=== PATIENT | female | born 1990 | race Caucasian/White ===

== ENCOUNTER → 2016-07-29 | Outpatient (CLI) | payer OTHER ==
[~2016-07-29] MED LIST: PRENTAB26 PO; SULF800T23 PO; UNKNOWN ANTIBIOTIC
== END | disposition home or self-care (01) ==
LOC: C.LAB1850 08:15
PROVIDERS: ATTEND Obstetrics & Gynecology
DX: O28.1 Abnormal biochemical finding on antenatal screening of mother (principal)

== ENCOUNTER 2016-09-03 18:20 | Outpatient (CLI) | payer OTHER ==
[~2016-09-03] VITALS: Ht 157.5 cm; Wt 88.6 kg
[~2016-09-03 18:20] MED LIST changes: -PRENTAB26 PO
[2016-09-03 19:10] VITALS: Ht 157.5 cm; Wt 88.6 kg
[2016-09-03] MEDS ORDERED: PRENTAB26 PO (19:10)
== END 2016-09-03 19:20 | disposition home or self-care (01) ==
LOC: C.OPB 18:20 → C.LD 18:21 → C.OPB 19:20
PROVIDERS: ATTEND Obstetrics & Gynecology
DX: O26.893 Other specified pregnancy related conditions, third trimester (principal); Z3A.35 35 weeks gestation of pregnancy

== ENCOUNTER → 2016-09-12 | Outpatient (CLI) | payer OTHER ==
[~2016-09-12] MED LIST changes: +PRENTAB26 PO; -SULF800T23 PO; -UNKNOWN ANTIBIOTIC
== END | disposition home or self-care (01) ==
LOC: C.LABSPEC 13:19
PROVIDERS: ATTEND Obstetrics & Gynecology
DX: Z34.83 Encounter for supervision of other normal pregnancy, third trimester (principal)

== ENCOUNTER 2016-09-23 13:06 | Outpatient (CLI) | payer OTHER ==
[~2016-09-23] VITALS: Ht 157.5 cm; Wt 86.4 kg
[2016-09-23 13:24] VITALS: Ht 157.5 cm; Wt 86.4 kg
--- NOTE | 2016-09-23 14:19 | Discharge Instructions ---
Discharge Instructions Date of Service Sep 23, 2016. Admission Reason for Admission: Check Labor Discharge Discharge Diagnosis / Problem: Rule out labour Discharge Goals Goal(s): Continuing OB care Activity Recommendations Activity Limitations: resume your previous activity . Current Hospital Diet Patient's current hospital diet: Discharge Diet Recommended Diet: Regular OB Diet Pending Studies Studies pending at discharge: no Medical Emergencies . Who to Call and When: Medical Emergencies: If at any time you feel your situation is an emergency, please call 911 immediately. . Non-Emergent Contact Non-Emergency issues call your: Primary Care Provider, Laundry Routeman . . "Provider Documentation" section prepared by Gian Avalos. VTE Core Measure Inpt VTE Proph given/why not?: Treatment not indicated
== END 2016-09-23 14:35 | disposition home or self-care (01) ==
LOC: C.LD 13:06 → C.OPB 13:06
PROVIDERS: ATTEND Obstetrics & Gynecology
DX: O62.9 Abnormality of forces of labor, unspecified (principal); Z3A.36 36 weeks gestation of pregnancy

== ENCOUNTER 2016-09-29 14:40 | Outpatient (CLI) | payer OTHER ==
--- NOTE | 2016-10-01 06:50 | EDITING REQUIRED CODING QUERY ---
DIAGNOSIS NEEDED To promote full compliance with coding requirements relating to patient care, physician participation is requested in all cases of typecasting machine operator uncertainty. Please assist us with the question(s) below: Coding Question: The patient received care in labor and delivery on 09/29/16 as noted within the record. Please document the diagnosis that is being addressed by the medication/treatment. Provider Response: DIAGNOSIS: 38w5d gestation contractions Thank you for your assistance, Temitope Gutierrez - Computer Bookkeeper
== END 2016-09-29 15:55 | disposition home or self-care (01) ==
LOC: C.OPB 14:40 → C.LD 14:41 → C.OPB 15:55
PROVIDERS: ATTEND Obstetrics & Gynecology
DX: O62.9 Abnormality of forces of labor, unspecified (principal); Z3A.38 38 weeks gestation of pregnancy

== ENCOUNTER 2016-09-30 05:11 | Inpatient (IN) | payer OTHER ==
[~2016-09-30] VITALS: Ht 157.5 cm; Wt 88.0 kg
[~2016-09-30 05:11] MED LIST changes: +OXYTOCIN 30 UNITS/500ML NSS IV ONE
[2016-09-30] MEDS ORDERED: LACTATED RINGER'S 1000ML 1,000 ML IV SCH (05:35)
[2016-09-30] MEDS ORDERED: BENZOCAINE 20% AER SPR 82.5 GM CAN EXT PRN (05:45)
[2016-09-30] MEDS ORDERED: LANOLIN OINT EXT PRN ×2 (05:45)
[2016-09-30] MEDS ORDERED: HYDROCORTISONE ACETATE 25 MG SUPP PR PRN (05:45)
[2016-09-30] MEDS ORDERED: SUPERCREAM 0.870 % 15GM JAR EXT PRN (05:45)
[2016-09-30] MEDS ORDERED: ACETAMINOPHEN/CODEINE 300/30MG TAB PO PRN ×2 (05:45)
[2016-09-30] MEDS ORDERED: OXYTOCIN 30 UNITS/500ML NSS IV PRN (05:45)
[2016-09-30] MEDS: IBUPROFEN 600 MG TAB PO PRN ×2 (05:46→14:03)
[2016-09-30 06:22] VITALS: Ht 157.5 cm; Wt 88.0 kg
--- NOTE | 2016-09-30 06:25 | DELIVERY SUMMARY ---
DATE OF OPERATION: 09/30/2016 PRE-DELIVERY DIAGNOSES: 1. A 26-year-old G2, P1-0-0-1 at 39 weeks 0 days. 2. Spontaneous labor. POST-DELIVERY DIAGNOSES: Same. PROCEDURE: Spontaneous vaginal delivery. FINDINGS: A viable female , Apgars 8 and 9, weight pending. Please see nursery notes. ESTIMATED BLOOD LOSS: 300 mL. CONDITION: Stable and good. DESCRIPTION OF DELIVERY: The patient progressed to complete and without epidural anesthesia, spontaneously vaginally delivered a viable female from the right occiput anterior position. The head delivered, one nuchal cord was noted and easily reduced. The anterior followed by the posterior shoulder delivered, followed by the body. The baby was warmed and dried and placed on the mother's abdomen and a spontaneous cry was heard. The cord was doubly clamped and cut. A cord segment was retained. Cord gases pending. Cord blood was obtained. The placenta was delivered spontaneously, intact with a 3-vessel cord. The uterus and vagina were swept of all clots and debris. The perineum, cervix and vagina were inspected and a first-degree laceration was noted. This was hemostatic. The patient elected for no repair. Sponge and instrument were correct at the conclusion of the delivery. The patient tolerated the delivery well. Excellent hemostasis was observed. I attest to the content of the Intraoperative Record and any orders documented therein. Any exceptions are noted below. MTDD
[2016-09-30 06:39] LABS: HEMATOCRIT 35.1 % (37-47); MEAN CELL VOLUME 90.5 fL (80-100); MEAN CORPUSCULAR HEMOGLOBIN 29.9 pg (25-34); MEAN PLATELET VOLUME 12.5 fL (7.4-10.4); PLATELET COUNT 188 K/uL (130-400); RED BLOOD COUNT 3.88 M/uL (4.2-5.4); WHITE BLOOD COUNT 14.44 K/uL (4.8-10.8)
[2016-09-30 09:00] VITALS: BP 118/69; PULSE 76; TEMP 36.8; O2SAT 98
[2016-09-30] MEDS: DOCUSATE SODIUM 100 MG CAP PO SCH ×2 (09:46→20:03)
[2016-09-30 11:45] VITALS: BP 118/70; PULSE 73; TEMP 36.8; O2SAT 98
[2016-09-30 15:30] VITALS: BP 104/64; PULSE 71; TEMP 36.6; O2SAT 98
[2016-09-30 20:05] VITALS: BP 120/77; PULSE 84; TEMP 36.5; O2SAT 99
[2016-09-30 23:05] VITALS: BP 116/69; PULSE 73; TEMP 36.9; O2SAT 98
[2016-10-01 03:55] VITALS: BP 115/73; PULSE 69; TEMP 36.7; O2SAT 98
[2016-10-01 07:05] LABS: HEMATOCRIT 33.5 % (37-47)
[2016-10-01 07:55] VITALS: BP 113/68; PULSE 71; TEMP 36.8
[2016-10-01] MEDS: DOCUSATE SODIUM 100 MG CAP PO SCH (07:56)
--- NOTE | 2016-10-01 08:25 | Progress Note ---
Subjective Oct 01, 2016. Subjective conversation w/ patient, physical exam, chart review, lab review Ambulation: ambulating normally Voiding: no voiding problems Feeding Type: Breast Feeding Objective Vital Signs Date Time Temp Pulse Resp B/P Pulse Ox O2 Delivery O2 Flow Rate FiO2 10/01/16 03:55 36.7 69 16 115/73 98 Room Air 09/30/16 23:05 36.9 73 16 116/69 98 Room Air 09/30/16 23:05 Room Air 09/30/16 20:05 Room Air 09/30/16 20:05 36.5 84 16 120/77 99 Room Air 09/30/16 15:30 Room Air 09/30/16 15:30 36.6 71 18 104/64 98 Room Air 09/30/16 11:45 36.8 73 20 118/70 98 Room Air 09/30/16 09:00 36.8 76 20 118/69 98 Room Air 09/30/16 09:00 Room Air Physical Exam General Appearance: WELL-APPEARING Abdomen: non tender Fundus: Firm Extremities: no calf tenderness Laboratory Results Last 24 Hours Test 10/01/16 06:45 Hemoglobin 11.3 g/dL Hematocrit 33.5 % Assessment and Plan Post- Day#: 1 Continue Routine Care: home
--- NOTE | 2016-10-01 08:27 | Discharge Instructions ---
Discharge Instructions Date of Service Oct 01, 2016. Admission Reason for Admission: LABOR Discharge Discharge Diagnosis / Problem: normal delivery Discharge Goals Goal(s): Routine recovery after delivery Activity Recommendations Activity Limitations: per Instructions/Follow-up section . Instructions / Follow-Up Instructions / Follow-Up ACTIVITY RECOMMENDATIONS: * Gradual return to full activity over the next 2-3 weeks. * No lifting - nothing heavier than baby over the next 2-3 weeks. * Do not engage in vigorous exercise, sexual activity or sports until cleared by your physician. * Do not drive or operate any motorized equipment until cleared by your physician. * You may shower/bathe daily. MEDICATIONS: For discomfort or pain, you may use Acetaminophen (Tylenol), Ibuprofen (Advil), or Naproxen (Aleve) following the package directions. For constipation you may use Colace following the package directions. BREAST CARE: If you are not breast feeding: * Wear a supportive bra 24 hours a day for one to two weeks. * Avoid stimulating your breasts and nipples as much as possible during the first few weeks after delivery. * When taking a shower, have the warm water hit your back, not breasts. * When your breasts feel full, apply ice packs. Usually three to four times a day helps ease the discomfort. * Take a mild pain medication (Tylenol / Motrin) when you are uncomfortable. If breast feeding: * Use breast milk to lubricate nipples. Lansinoh cream may be used for sore nipples. You do not need to remove cream prior to breast feeding. If using a different brand of cream, check the label for directions regarding removal of cream prior to nursing. * Wear a supportive bra. * If having problems with breasts or breast feeding, call a risk and insurance consultant or your health care provider. EPISIOTOMY CARE: After delivery, if you have an episiotomy (stitches), the following steps will ease discomfort and aid healing. * For the first 24 hours after delivery, place ice packs next to your episiotomy to help reduce swelling. * After the first 24 hour-period, sitz baths, either portable or in the tub, are suggested. A shower with a shower arm sprayed over the episiotomy may be comforting. * [place] care should be done after each voiding and bowel movement. Squirt warm water from a plastic bottle over the perineum (region of the body between the anus and urinary opening) and pat dry. * Use Dermoplast to ease discomfort. Shake container. [place] directly over the episiotomy. Place a Tucks on a clean sanitary pad next to your episiotomy. SPECIAL CARE INSTRUCTIONS: When you are discharged from the hospital, it is important for you to follow the instructions listed below: * During the first week at home, you should be able to care for yourself and your baby. In addition, the usual light household activities are encouraged. * Limit your activities to the way you feel. Do not try to clean the house or move furniture. Be sensible. * If you actively engage in sports and have done so up until the time of your delivery, you may resume these activities as soon as you feel able. This may take up to one month or even longer. Use good judgment. * Continue to take your vitamins for at least six weeks after the of your baby. * Your diet need not be limited unless you were on a special diet before your delivery. Breast-feeding mothers need around 2500 calories per day and at least 64-80 ounces of fluid per day (8 to 10 glasses). * You should eat foods from the four major food groups. Crash diets or fad diets are to be avoided. Eating lean meats, fresh fruits and vegetables, low-fat dairy products, high fiber foods and a regular exercise program, will help you get back to your pre- weight without putting your health at risk. * Constipation is sometimes a problem after delivery. Take a mild laxative as needed. If breast feeding, Milk of Magnesia is acceptable to use. You may use a suppository or Fleets enema if no episiotomy. * A daily shower or tub bath is suggested. Be sure to thoroughly and gently dry the perineum. * A bloody vaginal discharge will usually continue until around four weeks post . A small amount of bleeding may continue for as long as six weeks. Vaginal discharge changes from the bright red bleeding after delivery to pink then brownish and finally yellowish-pink before becoming white and disappearing. * Bleeding may increase with activity. Your first period may come in 4-8 weeks. If you are breast feeding, your period may be delayed even longer. * [place] (sex) can begin whenever both you and your partner feel comfortable and do not have any form of genital infection. It is recommended that you wait at least six weeks for internal and external healing to occur. If you have questions, please talk to your health care practitioner. A condom should be used to prevent infection and . * Foreplay, gentle intercourse and lubrication is very important the first several times to prevent pain. A water-based lubricant such as K-Y jelly or Astroglide may be used. * If you have RH negative blood and your baby is RH positive, you will receive RHOGAM by injection prior to discharge. The nurse will give you a card to keep with you that has the date and place that you received RHOGAM after delivery. * During your care, you had a Rubella screen done to check for the presence of rubella antibodies in your blood. If your test was negative, you will receive a Rubella vaccine prior to discharge. This vaccine may cause a fever, soreness at the injection site and flu-like symptoms. If these symptoms persist, notify your health care practitioner. is not advised for one month after a Rubella vaccine. * Verbalizes understanding of car seat law as reviewed with patient nursing. * Car Seat hand-out given and reviewed with patient by nursing. * Shaken baby information reviewed with patient by nursing. Call you doctor if: * Heavy bleeding (saturating several pads an hour) or passing clots the size of your fist. * A fever >101 degrees F (38.3 degrees C) on two occasions four hours apart and /or chills. * Unusual pain in the pelvic or vaginal areas. * "Baby Blues" lasting longer than two weeks. If you have any questions or concerns, call your health care practitioner at . FOLLOW UP VISIT: * Please call the office at to schedule a 6 week examination. It is important you keep this appointment. It is important for you to make arrangements for either yearly or twice yearly check-ups thereafter. Current Hospital Diet Patient's current hospital diet: Regular OB Diet Discharge Diet Recommended Diet: Regular OB Diet Pending Studies Studies pending at discharge: no Medical Emergencies . Who to Call and When: Medical Emergencies: If at any time you feel your situation is an emergency, please call 911 immediately. . Non-Emergent Contact Non-Emergency issues call your: Primary Care Provider . . "Provider Documentation" section prepared by Tutu Krause. VTE Core Measure Inpt VTE Proph given/why not?: Treatment not indicated
[2016-10-01 10:10] VITALS: BP_DIAS 68; PULSE 71; TEMP 36.8
[2016-10-01] MEDS ORDERED: BISACODYL 5 MG TABEC PO SCH (20:00)
[2016-10-02] MEDS ORDERED: BISACODYL 10 MG SUPP PR PRN (07:00)
== END 2016-10-01 10:10 | disposition home or self-care (01) | DRG 775 ==
LOC: C.LD 05:11 → C.OBG 08:45
PROVIDERS: ADMIT Obstetrics & Gynecology; ATTEND Obstetrics & Gynecology
PROC: 10E0XZZ Delivery of Products of Conception, External Approach (ICD-10-PCS; principal; 2016-09-30)
DX: O42.02 Full-term premature rupture of membranes, onset of labor within 24 hours of rupture (principal); Z37.0 Single live birth; O69.81X0 Labor and delivery complicated by cord around neck, without compression, not applicable or unspecified; O99.344 Other mental disorders complicating childbirth; F41.9 Anxiety disorder, unspecified; O99.62 Diseases of the digestive system complicating childbirth; K21.9 Gastro-esophageal reflux disease without esophagitis; O99.02 Anemia complicating childbirth; D64.9 Anemia, unspecified; Z3A.39 39 weeks gestation of pregnancy